=== PATIENT | female | born 1970 | race African-American/Black ===

== ENCOUNTER 2020-07-05 19:07 | Emergency (ER) | payer OTHER, MEDICAID ==
[~2020-07-05] VITALS: Ht 162.5 cm; Wt 89.8 kg
[2020-07-05] MEDS ORDERED: DIVALPROEX SOD500 MG PO (21:37)
[2020-07-05] MEDS ORDERED: LOSARTAN POTAS100 M1 PO (21:37)
[2020-07-05] MEDS ORDERED: OMEPRAZOLE MAGN20 MG PO (21:37)
[2020-07-05] MEDS ORDERED: HYDROCHLOROTHIA25 M1 PO (21:38)
[2020-07-05] MEDS ORDERED: AMLODIPINE BESY10 MG PO (21:38)
[2020-07-05] MEDS ORDERED: TOPIRAMATE50 M2 PO (21:38)
[2020-07-05] MEDS ORDERED: VENLAFAXINE37.5 M1 PO (21:39)
[2020-07-06 01:29] LABS: BASO % 0.4 % (0.0-1.0); EOS # 0.1 10*3/uL (0.0-0.4); EOS % 1.4 % (1.0-4.0); HEMATOCRIT 40.8 % (37.0-47.0); LYMPH # 3.4 10*3/uL (1.3-4.4); LYMPH % 43.9 % (27.0-41.0); MEAN CELL VOLUME 89.1 fl (81.0-99.0); MEAN CORPUSCULAR HGB 27.7 pg (27.0-31.0); MEAN CORPUSCULAR HGB CONC 31.1 g/dl (33.0-37.0); MONO # 0.7 10*3/uL (0.1-1.0); MONO % 8.9 % (3.0-9.0); NEUT # 3.5 10*3/uL (2.3-7.9); NEUT % 45.3 % (47.0-73.0); PLATELET COUNT AUTOMATED 289 10*3/uL (130-400); RED BLOOD COUNT 4.58 10*6/uL (4.10-5.10); RED CELL DISTRI WIDTH 13.5 % (0-14.5); WHITE BLOOD COUNT 7.8 10*3/uL (4.8-10.8)
[2020-07-06 01:49] LABS: ALBUMIN 3.1 gm/dl (3.1-4.5); ALKALINE PHOSPHATASE 87 U/L (45-117); BUN 14 mg/dl (7-24); CHLORIDE 111 mmol/L (98-107); CREATININE 0.71 mg/dL (0.55-1.02); POTASSIUM 3.5 mmol/L (3.5-5.1); SGOT/AST 27 IU/L (3-35); SGPT/ALT 36 U/L (12-78); SODIUM 142 mmol/L (136-145); TOTAL PROTEIN 7.6 gm/dL (6.4-8.2)
[2020-07-06 02:00] LABS: VALPROIC ACID (DEPAKENE) 5.7 ug/ml (50-100)
== END 2020-07-06 02:57 | disposition short-term general hospital (02) ==
LOC: ED 19:07
PROVIDERS: Emergency Medicine
DX: S32.041A Stable burst fracture of fourth lumbar vertebra, initial encounter for closed fracture (principal); I10 Essential (primary) hypertension; M19.90 Unspecified osteoarthritis, unspecified site; Z91.012 Allergy to eggs; Z79.899 Other long term (current) drug therapy; Z98.51 Tubal ligation status; Z90.49 Acquired absence of other specified parts of digestive tract; Z90.711 Acquired absence of uterus with remaining cervical stump; Z96.651 Presence of right artificial knee joint; X58.XXXA Exposure to other specified factors, initial encounter; Y93.89 Activity, other specified; Y92.89 Other specified places as the place of occurrence of the external cause; Y99.8 Other external cause status